=== PATIENT | female | born 2005 | race Caucasian/White ===

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

== ENCOUNTER 2023-11-10 13:29 | Outpatient (CLI) | payer OTHER, SELFPAY ==
--- NOTE | ~2023-11-10 | CT_ITS ---
EXAMINATION: CT sinus wo con DATE: 11/10/2023 13:51 INDICATION: Sinus congestion for 4 years, intermittent. Headache, dizziness. TECHNIQUE: Computed tomography (CT) of the paranasal sinuses was performed without contrast. Iterativ e reconstruction technique was employed. Exam dose: 263.70 mGy-cm total exam DLP. COMPARISON: None FINDINGS: There is moderately prominent soft tissue swelling of the nasal turbinates. There is leftward deviation of the upper portion of the nasal septum. The ostiomeatal units are patent. Bilateral Gary cells. The paranasal sinuses are normally developed and aerated. The mastoid air cells are well-developed and aerated bilaterally. IMPRESSION: Patent paranasal sinuses, ostiomeatal units and mastoid air cells Bilateral Gary cells Moderately prominent nasal turbinates Leftward deviation of upper nasal septum Reviewed, dictated and finalized at [facility]. Reviewed, dictated and finalized at location L. ENT LIAISON
== END 2023-11-10 13:30 | disposition home or self-care (01) ==
LOC: CHSIMG 13:31
PROVIDERS: PCP Internal Medicine; Visit Provider Internal Medicine
DX: J32.8 Other chronic sinusitis (principal); J34.2 Deviated nasal septum
CPT/HCPCS: 70486